=== PATIENT | male | born 1940 ===

== ENCOUNTER 2022-07-20 14:08 | Observation (INO) ==
[2022-07-20 14:29] LABS: ABS Lymphocytes 0.6 10^3/ul (1.0-4.8); ABS Monocytes 0.6 10^3/ul (0-0.8); ABS Neutrophils 5.4 10^3/ul (1.5-7.7); Eosinophil % 0.4 %; Hematocrit 28 % (42-52); Hemoglobin 9.1 g/dL (14.0-18.0); Lymphocyte % 8.9 %; Mean Corpuscular HGB Conc 32 g/dL (31-36); Mean Corpuscular Hemoglobin 29 pg (27-31); Mean Corpuscular Volume 90 fL (80-94); Mean Platelet Volume 7.2 fL (7.4-10.4); Platelet Count 366 10^3/uL (150-450); Red Blood Count 3.13 10^6 /uL (4.18-5.48); Red Cell Distribution Width 18 % (10-15); White Blood Count 6.6 10^3/uL (3.5-10.8)
[2022-07-20 14:58] LABS: INR 1.03 (0.89-1.11)
[2022-07-20 15:43] LABS: Albumin/Globulin Ratio 1.3 (1-3); Calcium 8.6 mg/dL (8.6-10.3); Globulin 2.3 g/dL (2-4); Potassium 4.3 mmol/L (3.5-5.0); Total Bilirubin 0.3 mg/dL (0.2-1.0); Total Protein 5.3 g/dL (6.4-8.9); eGFR CKD-EPI 83.1 (>60)
[2022-07-20 16:13] LABS: High Sensitivity Troponin 1 Hr 39 pg/mL (<20)
[2022-07-20] MEDS ORDERED: Iohexol 350 (CONTRAST) 500 ML MDV IV ONE (16:38)
[2022-07-20] MEDS ORDERED: Enoxaparin 40 MG/0.4 ML SYR SUBCUT SCH (21:00)
[2022-07-21 05:28] LABS: ABS Lymphocytes 0.8 10^3/ul (1.0-4.8); ABS Monocytes 0.5 10^3/ul (0-0.8); ABS Neutrophils 3.3 10^3/ul (1.5-7.7); Hematocrit 27 % (42-52); Hemoglobin 9.1 g/dL (14.0-18.0); Lymphocyte % 16.4 %; Mean Corpuscular HGB Conc 33 g/dL (31-36); Mean Corpuscular Hemoglobin 30 pg (27-31); Mean Corpuscular Volume 89 fL (80-94); Mean Platelet Volume 7.1 fL (7.4-10.4); Nucleated Red Blood Cells % 0.1; Platelet Count 275 10^3/uL (150-450); Red Blood Count 3.05 10^6 /uL (4.18-5.48); Red Cell Distribution Width 17 % (10-15); White Blood Count 4.6 10^3/uL (3.5-10.8)
[2022-07-21 05:50] LABS: Calcium 8.1 mg/dL (8.6-10.3); Potassium 3.9 mmol/L (3.5-5.0); eGFR CKD-EPI 84.5 (>60)
[2022-07-21 07:24] LABS: Ferritin 72.4 ng/mL (24-336)
[2022-07-21] MEDS ORDERED: Lisinopril/HCTZ 10/12.5 TA(NF) PO SCH (09:00)
[2022-07-21 15:56] VITALS: BP 109/54
== END 2022-07-21 18:10 | disposition home or self-care (01) ==
LOC: EDHOLD 14:08 → ED 14:08 → SUATTDRO 19:25 → EDHOLD 23:39 → MEDTELE 07-21 00:09
PROVIDERS: ADMIT Internal Medicine; ATTEND Internal Medicine